=== PATIENT | male | born 1950 | race Caucasian/White ===

== ENCOUNTER 2020-12-08 07:13 | Day surgery (SDC) | payer MEDICARE, OTHER ==
[2020-12-08] MEDS ORDERED: LACTATED RINGERS 1,000 ML IV ONE ×2 (07:46→09:20)
[2020-12-08] MEDS ORDERED: MIDAZOLAM 2 MG/2 ML VIAL ONE ×2 (08:10→08:41)
[2020-12-08] MEDS ORDERED: fentaNYL 250 MCG/5 ML VIAL ONE (08:11)
[2020-12-08] MEDS ORDERED: ONDANSETRON 4 MG/2 ML VIAL ONE ×2 (09:34→09:46)
[2020-12-08 10:00] VITALS: BP 125/67
== END 2020-12-08 07:14 | disposition home or self-care (01) ==
LOC: SDS 07:13
PROVIDERS: ATTEND Surgery
PROC: 0DBH8ZZ Excision of Cecum, Via Natural or Artificial Opening Endoscopic (ICD-10-PCS; 2020-12-08)
PROC: 0DBM8ZX Excision of Descending Colon, Via Natural or Artificial Opening Endoscopic, Diagnostic (ICD-10-PCS; 2020-12-08)
PROC: 0DBL8ZX Excision of Transverse Colon, Via Natural or Artificial Opening Endoscopic, Diagnostic (ICD-10-PCS; 2020-12-08)
PROC: 0DBK8ZZ Excision of Ascending Colon, Via Natural or Artificial Opening Endoscopic (ICD-10-PCS; principal; 2020-12-08 09:00)
DX: Z12.11 Encounter for screening for malignant neoplasm of colon (principal); D12.0 Benign neoplasm of cecum; D12.2 Benign neoplasm of ascending colon; D12.3 Benign neoplasm of transverse colon; D12.4 Benign neoplasm of descending colon; K57.30 Diverticulosis of large intestine without perforation or abscess without bleeding; K21.9 Gastro-esophageal reflux disease without esophagitis; F17.290 Nicotine dependence, other tobacco product, uncomplicated
CPT/HCPCS: 45380; 45385; J3010; J7120; 88305

== ENCOUNTER 2021-07-02 10:36 | Emergency (ER) | payer MEDICARE, OTHER ==
[2021-07-02 10:56] VITALS: BP 163/89
--- NOTE | 2021-07-02 11:38 | ED Physician Documentation ---
History of Present Illness - Stated complaint Stated Complaint: LT INDEX LAC - Chief complaint Chief Complaint: Laceration - Additonal information Additional information: 71-year-old male presents emergency department for evaluation of a 2 similar laceration on his left index finger fat pad when using a serrated knife. Reports tetanus is up-to-date. Patient is right-hand dominant Review of Systems Constitutional: denies: Fever, Chills Eyes: reports: Reviewed and negative Nose: reports: Reviewed and negative Throat: reports: Reviewed and negative : reports: Reviewed and negative Skin: reports: Laceration (s) PD PAST MEDICAL HISTORY - Past Medical History Cardiovascular: None Respiratory: None Endocrine/Autoimmune: None GI: GERD : None HEENT: None Psych: None Musculoskeletal: None Derm: None - Past Surgical History General: Cholecystectomy, Colonoscopy Ortho: Knee replacement, Shoulder arthroplasty - Present Medications Home Medications: Ambulatory Orders Medication Instructions Recorded Confirmed Beclomethasone Dipropionate 25 gm NS 12/08/20 [Beconase Aq] Celecoxib [CeleBREX] 200 mg PO DAILY 12/08/20 12/08/20 Dutasteride [Avodart] 0.5 mg PO 12/08/20 Omeprazole 40 mg PO 12/08/20 - Allergies Allergies/Adverse Reactions: Allergies Allergy/AdvReac Type Severity Reaction Status Date / Time meloxicam Allergy Unknown Verified 07/02/21 10:53 PD ED PE EXPANDED - General General: Alert, No acute distress - Extremities Extremities: Left finger(s) (Left index finger with a To cement her laceration across the fat pad. Distal perfusion intact. Patient able to flex and extend against resistance at DIP joint. Bleeding controlled with pressure.) Results - Vitals Vitals: Vital Signs - 24 hr 07/02/21 10:50 Temperature 36.4 C L Heart Rate 63 Respiratory 16 Rate Blood Pressure 163/89 H O2 Saturation 97 Oxygen O2 Source Room air Procedures - Laceration (location) Left index finger Length in cm: 2 Wound type: Curved, Into subcut fat Neurovascular status: Sensory intact, Motor intact, Vascular intact Tendon involvement: Tendon intact Wound preparation: Chlorhexadine, Irrigated copiously NS Skin layer closure: Dermabond Other: Patient tolerated well, No complications, Tetanus UTD PD MEDICAL DECISION MAKING - ED course Complexity details: d/w patient ED course: 71-year-old male with a left index finger laceration across the fat pad when using a serrated knife. No evidence of tendon injury neurovascularly intact. Wound simply closed with glue. Routine wound care and emergent return precautions discussed Departure - Departure Disposition: 01 Home, Self Care Clinical Impression: Laceration of left index finger Qualifiers: Encounter type: initial encounter Damage to nail status: without damage Foreign body presence: without foreign body Qualified Code(s): S61.211A - Laceration without foreign body of left index finger without damage to nail, initial encounter Instructions: ED Laceration Ext Skin Glue Comments: Rashi the laceration on your finger was closed with glue. Tomorrow morning you can remove the dressing. You can gently wash your hand with warm soap and water and then apply any bandage. The glue wears away over about a week time. Do not apply bacitracin or any antibiotic ointment it will cause the glue to wear away sooner. Return to any ER or urgent care for concerns of infection such as redness, fevers, increased pain or milky drainage.
== END 2021-07-02 11:40 | disposition home or self-care (01) ==
LOC: ED 10:36
DX: S61.211A Laceration without foreign body of left index finger without damage to nail, initial encounter (principal); W26.0XXA Contact with knife, initial encounter; Y93.G1 Activity, food preparation and clean up
CPT/HCPCS: 12001; 99282

== ENCOUNTER 2024-01-04 13:20 | Outpatient (CLI) | payer MEDICARE, OTHER ==
--- NOTE | 2024-01-05 13:09 | XRAY Report ---
PROCEDURE: Ankle 3+V LT INDICATIONS: SPRAIN OF UNSPECIFIED LIGAMENT OF LEFT ANKLE TECHNIQUE: 3 views of the ankle were acquired. COMPARISON: None. FINDINGS: Bones: No fractures or dislocations. Ankle mortise is normally aligned. No suspicious bony lesions . Mild degenerative joint disease. Soft tissues: No tibiotalar joint effusion. Achilles tendon appears normal. IMPRESSION: 1. No acute bony abnormality. If clinical symptoms persist, consider a follow-up exam in 7-10 days or advanced imaging such as CT or MRI. 2. Mild degenerative joint disease. Reviewed by: Arti Holman MD on 01/05/2024 1:08 PM PDT Approved by: Arti Holman MD on 01/05/2024 1:08 PM PDT Station ID: [id number]
== END 2024-01-04 15:20 | disposition home or self-care (01) ==
LOC: DI.N 13:20
PROVIDERS: ATTEND Nurse Practitioner
DX: M19.072 Primary osteoarthritis, left ankle and foot (principal)